=== PATIENT | female | born 1995 | race Caucasian/White ===

== ENCOUNTER 2017-05-06 09:04 | Emergency (ER) | payer OTHER ==
[2017-05-06] MEDS ORDERED: ONDANSETRON 4 MG/2 ML VIAL IVP ONE ×2 (09:13→09:27)
--- NOTE | 2017-05-06 09:17 | EDPHY ---
H & P Stated Complaint: Heavy drinking last night - vominting for 8 hours. Time Seen by Provider: 05/06/17 09:16 - Personal History LMP (Females 10-55): 8-14 Days Ago Current Tetanus Diphtheria and Acellular Pertussis (TDAP): Yes - Medical/Surgical History Hx Asthma: No Hx Chronic Respiratory Disease: No Hx Diabetes: No Hx Cardiac Disease: No Hx Renal Disease: No Hx Cirrhosis: No Hx Alcoholism: No Hx HIV/AIDS: No Hx Splenectomy or Spleen Trauma: No Other PMH: Denies - Social History Smoking Status: Heavy smoker Constitutional: Initial Vital Signs Temperature (C) 36.4 C 05/06/17 09:09 Heart Rate 101 H 05/06/17 09:09 Respiratory Rate 18 05/06/17 09:09 O2 Sat (%) 98 05/06/17 09:09 O2 Delivery Mode Room Air Allergies/Adverse Reactions: No Known Allergies Allergy (Unverified 12/02/12 20:09) Home Medications: Medication Instructions Recorded Aripiprazole [Abilify] 10 mg PO 12/02/12 Sertraline HCl [Zoloft] 25 mg PO 12/02/12 Medical Decision Making ED Course/Re-evaluation: CHIEF COMPLAINT: Vomiting HISTORY OF PRESENT ILLNESS: The patient is a 21 y/o female arriving with her boyfriend complaining of 9 hours of persistent vomiting after drinking alcohol heavily last night. She has had these symptoms previously after drinking alcohol. She denies fever, diarrhea, abdominal pain, or other symptoms. She is normally healthy. No history of abdominal surgeries. REVIEW OF SYSTEMS: A 10 point review of systems was performed and is negative with the exception of the elements mentioned in the history of present illness. PHYSICAL EXAM: HR, BP, O2 Sat, RR. Temp noted General Appearance: Alert, dehydrated, appropriate, shaking, pale. Head: Atraumatic without scalp tenderness or obvious injury Eyes: Pupils equal, round, reactive to light and accommodation, EOMI, no trauma , no injection. Nose: Atraumatic, no rhinorrhea, clear. Throat: Mucus membranes dry. Neck: Supple, nontender, no lymphadenopathy. Respiratory: No retractions, no distress, no wheezes, and no accessory muscle use. Lungs are clear to auscultation bilaterally. Cardiovascular: Regular rate and rhythm, no murmurs, rubs, or gallops. Good capillary refill all extremities. Gastrointestinal: Abdomen is soft, nontender, non-distended, no masses, no rebound, no guarding, no peritoneal signs. Musculoskeletal: Normal active ROM of all extremities, atraumatic. Neurological: Alert, appropriate, and interactive. Nonfocal neuro exam. Skin: No rashes, good turgor, no nodules on palpation. Past medical history: Denies Past surgical history: Denies Family history: Noncontributory Social history: Heavy alcohol use. Boyfriend at bedside. DIFFERENTIAL DIAGNOSIS: The differential diagnosis for the patient's nausea and vomiting included but was not limited to alcoholic gastritis, gastroenteritis, appendicitis, and medication side effect. MEDICAL DECISION MAKING: This is a healthy 21 y/o female with a heavy alcohol use history who presents with a 9-hour history of persistent vomiting after heavy alcohol use last night. She appears uncomfortable and dehydrated on exam, but has a completely benign abdomen. She has no infectious symptoms and is afebrile here. Plan for symptomatic treatment with 4mg IV Zofran, 1mg IV Ativan, 40mg IV Pepcid, 2L IV NS. Patient is feeling improved after treatment. Abdomen remains benign. She will be discharged in stable condition with recommendation to decrease alcohol use and follow up with PCP as needed. Return precautions given. Departure - Departure Disposition: Home, Routine, Self-Care Clinical Impression: Nausea and vomiting Qualifiers: Vomiting type: unspecified Vomiting Intractability: non-intractable Qualified Code(s): R11.2 - Nausea with vomiting, unspecified Condition: Good Instructions: Acute Nausea and Vomiting (ED) Additional Instructions: 1. Take Zofran as directed for nausea and vomiting. Increase fluid intake. 2. Reduce alcohol use. Marijuana can also cause persistent vomiting in some people. 3. Follow up with your primary care provider for continued symptoms over the next 2-3 days. 4. Return to the ED for severe abdominal pain, fever, or other worsening of condition. Referrals: NONE *PRIMARY CARE P,. [Primary Care Provider] - As per Instructions [facility],. [Clinic] - As per Instructions Report Scribed for: Jeff Diaz Report Scribed by: Joelle Cloud Date of Report: 05/06/17 Time of Report: 09:33
[2017-05-06] MEDS ORDERED: FAMOTIDINE 20 MG/2 ML SDV IVP ONE (09:27)
[2017-05-06] MEDS ORDERED: LORazepam 2 MG/ML INJ IVP ONE (09:27)
[2017-05-06] MEDS ORDERED: NS 1,000 ML IV ONE ×2 (09:28)
[2017-05-06] MEDS: NS 500 ML IV ONE ×2 (09:28→09:43)
[2017-05-06 10:28] VITALS: RESP 15; O2SAT 97
[2017-05-06] MEDS ORDERED: ONDANSETRON 4MG PREPACK#2 BTL TAKEHOME ONE (10:45)
[2017-05-06 10:58] VITALS: BP 104/72; PULSE 68; TEMP 98.2
== END 2017-05-06 11:09 | disposition home or self-care (01) ==
DX: R11.2 Nausea with vomiting, unspecified (principal); E86.9 Volume depletion, unspecified; F17.200 Nicotine dependence, unspecified, uncomplicated
CPT/HCPCS: 96374; J2060; J2405

== ENCOUNTER 2017-05-20 17:31 | Emergency (ER) | payer OTHER ==
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
[2017-05-20] MEDS ORDERED: LORazepam 1 MG TAB PO ONE (20:06)
[2017-05-20] MEDS ORDERED: NICOTINE 21 MG/24 HR PATCH TD ONE (20:07)
[2017-05-20 20:19] LABS: % IMMATURE GRANULYOCYTES 0.3 % (0.0-1.1); ABSOLUTE IMMATURE GRANULOCYTES 0.03 10^3/uL (0.00-0.10); ADD DIFF? NO; ADD MORPH? NO; ADD SCAN? NO; ATYPICAL LYMPHOCYTE FLAG 40 (0-99); FRAGMENT RBC FLAG 0 (0-99); HEMATOCRIT 47.5 % (38.0-47.0); LEFT SHIFT FLG 0 (0-99); LIPEMIA HEMOLYSIS FLAG 80 (0-99); MEAN CELL HEMOGLOBIN 29.8 pg (27.9-34.1); MEAN CELL HEMOGLOBIN CONCENTR. 33.7 g/dL (32.4-36.7); MEAN CELL VOLUME 88.5 fL (81.5-99.8); MEAN PLATELET VOLUME 10.9 fL (8.7-11.7); PLATELET CLUMPS FLAG 0 (0-99); PLATELET COUNT 380 10^3/uL (150-400); RED BLOOD CELL COUNT 5.37 10^6/uL (4.18-5.33); RED CELL DISTRIBUTION WIDTH 14.3 % (11.5-15.2)
[2017-05-20 20:43] LABS: ANION GAP 19 mEq/L (8-16); CALCIUM 10.8 mg/dL (8.5-10.4); CARBON DIOXIDE 16 mEq/l (22-31); CHLORIDE 107 mEq/L (97-110); CREATININE 0.6 mg/dL (0.6-1.0); ETHANOL SERUM < 10 mg/dL (0-10); GLOMERULAR FILTRATION RATE > 60; GLUCOSE 77 mg/dL (70-100); POTASSIUM 4.6 mEq/L (3.5-5.2); SODIUM 142 mEq/L (134-144); SPECIMEN HEMOLYSIS 110
[2017-05-21] MEDS ORDERED: NICOTINE 21 MG/24 HR PATCH TD ONE ×2 (01:13→11:25)
[2017-05-21] MEDS: NICOTINE 21 MG/24 HR PATCH TD ONE ×2 (01:15→02:50)
[2017-05-21] MEDS ORDERED: LORazepam 1 MG TAB ONE ×2 (02:45→11:11)
[2017-05-21] MEDS ORDERED: LORazepam 1 MG TAB PO ONE ×2 (02:51→11:25)
[2017-05-21] MEDS ORDERED: NICOTINE 7 MG/24 HR PATCH TD SCH (09:00)
[2017-05-21] MEDS ORDERED: OLANZapine DISINTEGR 10 MG TAB ONE (12:32)
[2017-05-21] MEDS ORDERED: OLANZapine DISINTEGR 10 MG TAB PO ONE (12:39)
[2017-05-21] MEDS ORDERED: HALOPERIDOL 5 MG TAB PO ONE (13:39)
[2017-05-21] MEDS ORDERED: HALOPERIDOL LACT 5 MG/ML INJ ONE (13:42)
[2017-05-21 13:45] VITALS: TEMP 98.4; O2SAT 97
[2017-05-21] MEDS: LORazepam 1 MG TAB PO ONE ×2 (13:51→13:56)
[2017-05-21] MEDS ORDERED: HALOPERIDOL LACT 5 MG/ML INJ IM ONE (13:57)
[2017-05-21 15:51] VITALS: BP 129/99; PULSE 79; RESP 18
== END 2017-05-21 15:51 ==
DX: F19.10 Other psychoactive substance abuse, uncomplicated (principal); F17.200 Nicotine dependence, unspecified, uncomplicated
CPT/HCPCS: 80305; G0480

== ENCOUNTER 2017-09-10 14:52 | Emergency (ER) | payer OTHER ==
[2017-09-10 14:57] VITALS: RESP 16
--- NOTE | 2017-09-10 15:09 | EDPHY ---
H & P Time Seen by Provider: 09/10/17 15:05 HPI/ROS: CHIEF COMPLAINT: Vomiting HISTORY OF PRESENT ILLNESS: This patient is a 22 y/o female complaining of vomiting onset this morning. Since onset, she has been unable to keep down food or liquids. She denies fever or diarrhea. She has history of vomiting with alcohol use, but denies any recent consumption of alcohol. She did start NuvaRing control yesterday, and had some abdominal cramping last night which has since resolved. She denies any other symptoms or complaints. REVIEW OF SYSTEMS: A 10 point review of systems was performed and is negative with the exception of the elements mentioned in the history of present illness. Past Medical/Surgical History: Denies Social History: Works. Current smoker. Former alcohol use, none currently. Occasional marijuana use. Smoking Status: Current every day smoker Physical Exam: General Appearance: Alert, no distress Eyes: Pupils equal and round, no conjunctival pallor or injection ENT, Mouth: Mucous membranes moist Neck: Normal inspection Respiratory: Lungs are clear to auscultation Cardiovascular: Regular rate and rhythm Gastrointestinal: Abdomen is soft and non- tender Neurological: A&O, nonfocal, normal gait Skin: Warm and dry, no rash Extremities: Nontender, no pedal edema Psychiatric: Mood and affect normal Constitutional: Initial Vital Signs Temperature (C) 36.7 C 09/10/17 14:54 Heart Rate 52 L 09/10/17 14:54 Respiratory Rate 16 09/10/17 14:54 O2 Sat (%) 96 09/10/17 14:54 O2 Delivery Mode Room Air Allergies/Adverse Reactions: No Known Allergies Allergy (Verified 09/10/17 14:58) Home Medications: Medication Instructions Recorded Nuva Ring 09/10/17 Ondansetron Odt [Zofran Odt 4 mg 4 mg PO Q4 PRN #6 tab 09/10/17 (*)] Medical Decision Making ED Course/Re-evaluation: 22 y/o female presents with vomiting onset this morning. Exam unremarkable. IV established. Administered 4mg IV Zofran and 1L IV NS for symptom relief. The patient is feeling improved following medication administration. Tolerating oral fluids well. Abdomen is soft and nontender. Plan to discharge home in good condition with prescription for Zofran. Follow up and return precautions discussed. She is comfortable with this plan. Differential Diagnosis: Differential diagnosis includes though it is not limited to appendicitis, cholecystitis, diverticulitis, pyelonephritis, bowel perforation, small bowel obstruction. - Data Points Medications Given: Discontinued Medications Sodium Chloride (Ns) 1,000 mls @ 0 mls/hr IV EDNOW ONE; Wide Open PRN Reason: Protocol Stop: 09/10/17 15:13 Last Admin: 09/10/17 15:13 Dose: 1,000 mls Ondansetron HCl (Zofran) 4 mg IVP EDNOW ONE Stop: 09/10/17 15:13 Last Admin: 09/10/17 15:13 Dose: 4 mg Departure - Departure Disposition: Home, Routine, Self-Care Clinical Impression: Vomiting Qualifiers: Vomiting type: unspecified Vomiting Intractability: non-intractable Nausea presence: with nausea Qualified Code(s): R11.2 - Nausea with vomiting, unspecified Condition: Good Instructions: Acute Nausea and Vomiting (ED) Additional Instructions: 1. Take Zofran as prescribed as needed for nausea. 2. Stay well hydrated. Introduce bland foods as tolerated. 3. Follow up with your primary care physician for continued evaluation of symptoms. 4. Return to the emergency department for uncontrollable vomiting or diarrhea, fever, or other worsening of condition. Referrals: Rema Madrid PA [Primary Care Provider] - As per Instructions Prescriptions: Ondansetron Odt [Zofran Odt 4 mg (*)] 4 mg PO Q4 PRN #6 tab PRN Reason: Nausea Report Scribed for: Hawa Tanner Report Scribed by: Manju Seals Date of Report: 09/10/17 Time of Report: 15:09 Physician Review and Approval Statement: 09/10/17 15:09 Portions of this note were transcribed by a medical accounts receivable specialist. I personally performed a history, physical exam, medical decision making, and confirmed accuracy of information the transcribed note.
[2017-09-10] MEDS ORDERED: ONDANSETRON 4 MG/2 ML VIAL ONE (15:11)
[2017-09-10] MEDS ORDERED: ONDANSETRON 4 MG/2 ML VIAL IVP ONE (15:12)
[2017-09-10] MEDS ORDERED: NS 1,000 ML IV ONE (15:12)
[2017-09-10 16:41] VITALS: BP 93/55; PULSE 62; TEMP 98.2; O2SAT 99
== END 2017-09-10 16:40 | disposition home or self-care (01) ==
PROC: 3E0337Z Introduction of Electrolytic and Water Balance Substance into Peripheral Vein, Percutaneous Approach (ICD-10-PCS; principal; 2017-09-10)
DX: R11.2 Nausea with vomiting, unspecified (principal); E86.9 Volume depletion, unspecified; F17.200 Nicotine dependence, unspecified, uncomplicated
CPT/HCPCS: 96374; J2405

== ENCOUNTER 2019-05-01 14:18 | Emergency (ER) | payer OTHER | END 2019-05-01 17:16 | disposition home or self-care (01) ==